=== PATIENT | male | born 1960 | race Hispanic/Latino ===

== ENCOUNTER 2020-03-03 13:36 | Emergency (ER) | payer BC, OTHER ==
[2020-03-03] MEDS ORDERED: Adacel (T-DAP) 0.5 ML SYRINGE ONE (14:06)
== END 2020-03-03 15:36 | disposition home or self-care (01) ==
LOC: ERS 13:36
DX: S01.81XA Laceration without foreign body of other part of head, initial encounter (principal); S01.511A Laceration without foreign body of lip, initial encounter; Z23 Encounter for immunization; W22.8XXA Striking against or struck by other objects, initial encounter; Y99.0 Civilian activity done for income or pay
CPT/HCPCS: 12011; 90471; 90715